=== PATIENT | female | born 1970 | race American Indian/Alaskan Native ===

== ENCOUNTER 2022-04-08 08:15 | Day surgery (SDC) | payer BC ==
[2022-04-08] MEDS ORDERED: ASPIRIN EC 325 MG TAB PO ONE (08:52)
[2022-04-08 09:29] LABS: Basophils % (Auto) 1.1 % (0.0-1.8); Eosinophils # (Auto) 0.1 K/mm3 (0.0-0.4); Eosinophils % (Auto) 2.9 % (0.0-4.3); Hematocrit 37.3 % (30.3-42.9); Hemoglobin 11.9 gm/dl (10.1-14.3); Lymphocytes # (Auto) 1.2 K/mm3 (1.2-5.4); Lymphocytes % (Auto) 32.5 % (13.4-35.0); Mean Corpuscular HGB Conc 32 % (30-34); Mean Corpuscular Volume 77 fl (79-97); Monocytes # (Auto) 0.3 K/mm3 (0.0-0.8); Monocytes % (Auto) 6.8 % (0.0-7.3); Platelet Count 276 K/mm3 (140-440); Red Blood Count 4.88 M/mm3 (3.65-5.03); Red Cell Distribution Width 16.7 % (13.2-15.2)
[2022-04-08 09:45] LABS: Blood Urea Nitrogen 12 mg/dL (7-17); Calcium 9.3 mg/dL (8.4-10.2); Hemolysis Index 5; INR 0.84 (0.87-1.13)
[2022-04-08 09:46] LABS: BUN/Creatinine Ratio 20
[2022-04-08] MEDS ORDERED: diphenhydrAMINE 50 MG/ML VIAL ONE (09:55)
[2022-04-08] MEDS: SODIUM CHLORIDE 0.9% 500 ML 500 ML IV SCH ×2 (09:55→10:27)
[2022-04-08] MEDS ORDERED: HYDROCORTISONE SOD SUCC 100 MG/2 ML VIAL ONE (09:56)
[2022-04-08] MEDS ORDERED: HEPARIN/NS 5000 UNIT/500ML 1,000 ML IR ONE (09:59)
[2022-04-08] MEDS ORDERED: HEPARIN 10,000 UNITS/10 ML VIAL ONE (09:59)
[2022-04-08] MEDS ORDERED: LIDOCAINE (2%) 20 MG/1 ML VIAL 20 ML MDV INFILTRATI ONE (10:05)
[2022-04-08] MEDS: fentaNYL 100 MCG/2 ML INJ ONE ×2 (10:27→10:50)
[2022-04-08] MEDS: MIDAZOLAM 2 MG/2 ML INJ ONE ×2 (10:27→10:50)
[2022-04-08 10:55] LABS: Partial Thromboplastin Time 31.8 Sec. (24.2-36.6)
[2022-04-08] MEDS ORDERED: traMADol 50 MG TAB PO PRN (11:13)
[2022-04-08] MEDS ORDERED: SODIUM CHLORIDE 0.9% 1000 ML 1,000 ML IV SCH (11:15)
--- NOTE | 2022-04-08 11:17 | Discharge Summary ---
Short Stay Discharge Plan Activity: advance as tolerated Weight Bearing Status: Partial Weight Bearing Diet: low fat, low cholesterol, low salt Wound: keep clean and dry Special Instructions: no heavy lifting (3 days) Follow up with: GUILLERMO PALAFOX MD [Primary Care Provider] - 7 Days JUNE SANTIZO MD [Staff Physician] - 7 Days
--- NOTE | 2022-04-08 11:28 | Cardiac Catherization Report ---
DATE OF SERVICE: 04/08/2022 CARDIAC CATHETERIZATION REPORT REASON FOR PROCEDURE: The patient was referred for outpatient cardiac catheterization for episode of syncope and abnormal thallium stress test. PROCEDURES: * Left heart catheterization. * Selective left and right coronary angiography. * Left ventricular angiography. * Sedation time start 10:49, end 11:03. DESCRIPTION OF PROCEDURE: The patient was prepped and draped in a sterile fashion after informed consent. The right femoral artery was entered using Seldinger technique followed by placement of 6-Gambian sheath. Selective left and right coronary angiography was performed using #4 left and right Tl catheters. The pigtail catheter was used for left ventricular angiography. The catheters were then removed, sheath removed and hemostasis achieved using an Angio-Seal device. The patient was returned to the postprocedure unit in stable condition. There were no complications. FINDINGS: HEMODYNAMICS: Left ventricular end-diastolic pressure was 17, following coronary angiography. Ascending aortic pressure was 160/102. There was no significant pressure gradient on pullback across the aortic valve. CORONARY ANGIOGRAPHY: The left main coronary artery was angiographically normal. The left anterior descending artery and its diagonal branches were angiographically normal. The circumflex artery and its obtuse marginal branches were angiographically normal. The right coronary artery was dominant and similarly angiographically normal. Left ventricular systolic function was at lower limits of normal with estimated ejection fraction 50%. CONCLUSIONS: * Angiographically normal coronary arteries. * Left ventricular systolic function at the lower limits of normal, ejection fraction 50%. RECOMMENDATIONS: Risk factor modification. TID: [id number] RECEIPT: [id number] JONNY
[2022-04-08 14:18] VITALS: BP 145/95
--- NOTE | 2022-04-09 09:43 | Electrocardiograph Report ---
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
== END 2022-04-08 15:35 | disposition home or self-care (01) ==
LOC: CATHLABREC 08:15
PROVIDERS: ATTEND Internal Medicine Cardiovascular Disease
DX: R55 Syncope and collapse (principal); R94.39 Abnormal result of other cardiovascular function study; E78.00 Pure hypercholesterolemia, unspecified; I10 Essential (primary) hypertension; K21.9 Gastro-esophageal reflux disease without esophagitis; M19.90 Unspecified osteoarthritis, unspecified site; E03.9 Hypothyroidism, unspecified; Z90.11 Acquired absence of right breast and nipple; Z90.49 Acquired absence of other specified parts of digestive tract; Z85.3 Personal history of malignant neoplasm of breast; Z88.8 Allergy status to other drugs, medicaments and biological substances; Z79.899 Other long term (current) drug therapy; Z98.890 Other specified postprocedural states
CPT/HCPCS: 36415; 80048; 85025; 85610; 85730; 93005; 93458; 99156; C1760; C1894; J1200; J1644; J1720; J2250; J3010; J3490; J7030; J7040; Q9967